=== PATIENT | male | born 1980 | race Two or more races ===

== ENCOUNTER 2018-07-09 02:11 | Emergency (ER) | payer OTHER ==
[~2018-07-09] VITALS: Ht 177.8 cm; Wt 72.6 kg
[2018-07-09 04:35] LABS: Basophils # (auto) 0 uL; Basophils % (auto) 0.3 % (0.0-2.0); Eosinophils # (auto) 0 uL; Eosinophils % (auto) 0.1 % (0.0-7.0); Hematocrit 41.7 % (41.0-53.0); Hemoglobin 14.2 g/dL (13.5-17.5); Lymphocytes # (auto) 0.7 uL; Lymphocytes % (auto) 5.2 % (10.0-50.0); Mean Corpuscular Hemoglobin 31.3 pg (28.0-32.0); Mean Corpuscular Hgb Conc. 33.9 g/dL (32.0-36.0); Mean Corpuscular Volume 92.2 fL (80.0-100.0); Monocytes % (auto) 7.3 % (0.0-12.0); Neutrophils # (auto) 11.9 uL; Neutrophils % (auto) 87.1 % (37.0-80.0); Platelet Count (auto) 264 10^3/uL (140-450); Red Blood Cells 4.53 10^6/uL (4.5-5.90); Red Cell Distribution Width 13.5 % (11.8-14.3); White Blood Cell 13.6 10^3/uL (4.4-10.8)
[2018-07-09 04:57] LABS: Albumin 3.9 g/dL (3.4-5.0); BUN/Creatinine Ratio 18.2; Calcium 9.1 mg/dL (8.5-10.1); Potassium 4.2 mmol/L (3.5-5.1)
[2018-07-09 04:59] LABS: Bilirubin, Total 0.3 mg/dL (0.2-1.0); Total Protein 8.2 g/dL (6.4-8.2)
[2018-07-09] MEDS ORDERED: VANCOMYCIN 1GM/250ML 250 ML IV ONE (07:00)
[2018-07-09] MEDS ORDERED: cefTRIAXone 1GM/50ML D5W 50 ML IV ONE (07:00)
[2018-07-09] MEDS ORDERED: LIDOCAINE 1% HCL (LOCAL ANESTH.) INJ 20ML MDV ONE (10:09)
[2018-07-09] MEDS ORDERED: cefTRIAXone SOD 1,000 MG VL IM ONE (10:15)
[2018-07-09] MEDS ORDERED: CLINDAMYCIN 600 MG/4 ML VL IM ONE (10:15)
[2018-07-09] MEDS ORDERED: LIDOCAINE 1% HCL (LOCAL ANESTH.) INJ 20ML MDV ID ONE (10:30)
[2018-07-09 11:30] VITALS: BP 149/88
== END 2018-07-09 11:30 | disposition home or self-care (01) ==
LOC: ER 02:11
DX: L03.114 Cellulitis of left upper limb (principal)
CPT/HCPCS: 36415; 73200; 80053; 83605; 85025; 87040; 96372; 99284; J0696; J2001

== ENCOUNTER 2022-07-18 11:16 | Emergency (ER) | payer MEDICAID ==
[~2022-07-18] VITALS: Ht 177.8 cm; Wt 79.5 kg
[2022-07-18 13:49] VITALS: BP 120/73
[2022-07-18] MEDS ORDERED: IBUP600T27 PO (14:06)
[2022-07-18] MEDS ORDERED: BACDST PO (14:06)
== END 2022-07-18 14:11 | disposition home or self-care (01) ==
LOC: ER 11:16
DX: M79.642 Pain in left hand (principal); L08.9 Local infection of the skin and subcutaneous tissue, unspecified; F17.210 Nicotine dependence, cigarettes, uncomplicated; F12.10 Cannabis abuse, uncomplicated
CPT/HCPCS: 73130